=== PATIENT | female | born 1945 | race Two or more races ===

== ENCOUNTER 2017-12-22 19:03 | Inpatient (IN) | payer MEDICARE, OTHER ==
[~2017-12-22] VITALS: Ht 124.5 cm; Wt 46.7 kg
[2017-12-22] MEDS ORDERED: DILTIAZEM HCL 25 MG IV IV ONE (19:30)
[2017-12-22] MEDS ORDERED: DILTIAZEM HCL 25 MG IV ONE (19:33)
[2017-12-22 19:44] LABS: BASOPHILS % (AUTO) 0.2 % (0.0-2.0); EOSINOPHILS # (AUTO) 0.4 /CMM (0.0-0.7); EOSINOPHILS % (AUTO) 3.8 % (0.0-6.0); HEMATOCRIT 23 % (33-45); HEMOGLOBIN 7.8 g/dL (11.5-14.8); LYMPHOCYTES # (AUTO) 0.9 /CMM (0.8-4.8); LYMPHOCYTES % (AUTO) 8.2 % (20.0-44.0); MEAN CORPUSCULAR HEMOGLOBIN 30 PG (26.0-33.0); MEAN CORPUSCULAR HGB CONC 33 g/dl (31.0-36.0); MEAN CORPUSCULAR VOLUME 89 fL (82-100); MONOCYTES # (AUTO) 1.5 /CMM (0.1-1.30); MONOCYTES % (AUTO) 14.2 % (2.0-12.0); NEUTROPHILS # (AUTO) 7.8 /CMM (1.8-8.9); NEUTROPHILS % (AUTO) 73.6 % (43.0-81.0); PLATELET COUNT (AUTO) 320 /CMM (150-450); RDW COEFFICIENT OF VARIATION 20.3 (11.5-15.0); RED BLOOD CELL COUNT(AUTO) 2.61 MIL/uL (4.0-5.2); WHITE BLOOD COUNT (AUTO) 10.6 K/uL (4.3-11.0)
[2017-12-22 19:46] LABS: CALCIUM, SERUM 8.3 mg/dL (8.5-10.1); CARBON DIOXIDE 28 mmol/L (21-32); CHLORIDE 97 mmol/L (98-107); CREATININE 0.6 mg/dL (0.6-1.3); GLUCOSE 114 mg/dL (74-106); SODIUM SERUM 131 mmol/L (136-145); UREA NITROGEN, BLOOD 7 mg/dL (7-18)
[2017-12-22 19:55] LABS: TROPONIN I 0.404 ng/mL (0.00-0.056)
[2017-12-22 19:59] LABS: B-TYPE NATRIURETIC PEPTIDE 2048 PG/ML (0-125)
[2017-12-22 20:19] LABS: INR 1.11 (0.85-1.15)
[2017-12-22] MEDS ORDERED: ASPIRIN 325 MG TABLET PO ONE (20:30)
[2017-12-22] MEDS ORDERED: ASPIRIN 325 MG TABLET ONE (20:47)
[2017-12-22] MEDS ORDERED: FUROSEMIDE 40 MG/4 ML VIAL IV ONE (21:30)
[2017-12-22] MEDS ORDERED: ACETAMINOPHEN 325 MG TABLET PO PRN (22:00)
[2017-12-22] MEDS ORDERED: MAGNESIUM HYDROXIDE 30 ML UDC PO PRN (22:00)
[2017-12-22] MEDS ORDERED: ONDANSETRON HCL/PF 4 MG/2 ML VIAL IVP PRN (22:00)
[2017-12-22] MEDS ORDERED: MAG HYDROX/AL HYDROX/SIMETH 30 ML UDC PO PRN (22:00)
[2017-12-22 22:45] VITALS: BP 108/45
[2017-12-23] VITALS (14 sets, daily range): BP systolic 90–118; BP diastolic 40–71
[2017-12-23] MEDS ORDERED: FUROSEMIDE 40 MG/4 ML VIAL ONE (05:19)
[2017-12-23 07:08] LABS: BASOPHILS % (AUTO) 0.2 % (0.0-2.0); EOSINOPHILS # (AUTO) 0.5 /CMM (0.0-0.7); EOSINOPHILS % (AUTO) 5.1 % (0.0-6.0); HEMATOCRIT 27 % (33-45); LYMPHOCYTES % (AUTO) 10.9 % (20.0-44.0); MEAN CORPUSCULAR HEMOGLOBIN 29 PG (26.0-33.0); MEAN CORPUSCULAR HGB CONC 33 g/dl (31.0-36.0); MEAN CORPUSCULAR VOLUME 87 fL (82-100); MONOCYTES # (AUTO) 1.4 /CMM (0.1-1.30); MONOCYTES % (AUTO) 14.9 % (2.0-12.0); NEUTROPHILS # (AUTO) 6.3 /CMM (1.8-8.9); NEUTROPHILS % (AUTO) 68.9 % (43.0-81.0); PLATELET COUNT (AUTO) 292 /CMM (150-450); RDW COEFFICIENT OF VARIATION 19.3 (11.5-15.0); RED BLOOD CELL COUNT(AUTO) 3.12 MIL/uL (4.0-5.2); WHITE BLOOD COUNT (AUTO) 9.1 K/uL (4.3-11.0)
[2017-12-23 07:13] LABS: CARBON DIOXIDE 25 mmol/L (21-32); CHLORIDE 100 mmol/L (98-107); CREATININE 0.5 mg/dL (0.6-1.3); GLUCOSE 107 mg/dL (74-106); MAGNESIUM 2.2 mg/dL (1.8-2.4); PHOSPHORUS 2.5 mg/dL (2.5-4.9); POTASSIUM 3.4 mmol/L (3.5-5.1); SODIUM SERUM 136 mmol/L (136-145); UREA NITROGEN, BLOOD 7 mg/dL (7-18)
[2017-12-23 07:36] LABS: IRON, SERUM 42 ug/dl (50-175); TOTAL IRON BINDING CAPACITY 204 ug/dl (250-450)
[2017-12-23 07:55] LABS: CHOLESTEROL 81 mg/dL (<200); FERRITIN 1759 ng/mL (8-388); HDL CHOLESTEROL 44 mg/dL (40-60); LDL 37 mg/dL (0-99); TRIGLYCERIDES 46 mg/dL (30-150)
[2017-12-23] MEDS ORDERED: ATOR40TA PO (08:38)
[2017-12-23] MEDS ORDERED: FURO-144 PO (08:38)
[2017-12-23] MEDS ORDERED: CYAN100096 PO (08:38)
[2017-12-23] MEDS ORDERED: LEVE250T2 PO (08:38)
[2017-12-23] MEDS ORDERED: ASPI-1169 PO (08:38)
[2017-12-23] MEDS ORDERED: MULT-24 PO (08:38)
[2017-12-23] MEDS ORDERED: DOCU-141 PO (08:38)
[2017-12-23] MEDS: FUROSEMIDE 40 MG/4 ML VIAL IV SCH ×2 (09:31→18:09)
[2017-12-23] MEDS: ASPIRIN 325 MG TABLET PO SCH (09:32)
[2017-12-23] MEDS: CARVEDILOL 6.25 MG TABLET PO SCH ×2 (09:32→20:34)
[2017-12-23] MEDS: PANTOPRAZOLE 40 MG TABLET.DR PO SCH (09:32)
[2017-12-23] MEDS ORDERED: POTASSIUM CHLORIDE 20 MEQ TAB.PRT.SR PO ONE (12:00)
[2017-12-24] VITALS: BP 96/41
[2017-12-24] MEDS ORDERED: RIVAROXABAN 10 MG TABLET PO ONE (02:00)
[2017-12-24 04:00] VITALS: BP 108/57
[2017-12-24 06:55] LABS: CALCIUM, SERUM 7.8 mg/dL (8.5-10.1); CARBON DIOXIDE 30 mmol/L (21-32); CHLORIDE 104 mmol/L (98-107); CREATININE 0.5 mg/dL (0.6-1.3); GLUCOSE 91 mg/dL (74-106); PHOSPHORUS 2.2 mg/dL (2.5-4.9); POTASSIUM 2.9 mmol/L (3.5-5.1); SODIUM SERUM 141 mmol/L (136-145); TROPONIN I 0.361 ng/mL (0.00-0.056); UREA NITROGEN, BLOOD 9 mg/dL (7-18)
[2017-12-24 06:59] LABS: BASOPHILS % (AUTO) 0.1 % (0.0-2.0); EOSINOPHILS # (AUTO) 0.4 /CMM (0.0-0.7); HEMATOCRIT 27 % (33-45); HEMOGLOBIN 9.1 g/dL (11.5-14.8); LYMPHOCYTES # (AUTO) 0.9 /CMM (0.8-4.8); LYMPHOCYTES % (AUTO) 9.8 % (20.0-44.0); MEAN CORPUSCULAR HEMOGLOBIN 29 PG (26.0-33.0); MEAN CORPUSCULAR HGB CONC 33 g/dl (31.0-36.0); MEAN CORPUSCULAR VOLUME 87 fL (82-100); MONOCYTES # (AUTO) 1.3 /CMM (0.1-1.30); MONOCYTES % (AUTO) 14.8 % (2.0-12.0); NEUTROPHILS # (AUTO) 6.1 /CMM (1.8-8.9); NEUTROPHILS % (AUTO) 70.3 % (43.0-81.0); PLATELET COUNT (AUTO) 317 /CMM (150-450); RDW COEFFICIENT OF VARIATION 18.1 (11.5-15.0); RED BLOOD CELL COUNT(AUTO) 3.16 MIL/uL (4.0-5.2); WHITE BLOOD COUNT (AUTO) 8.7 K/uL (4.3-11.0)
[2017-12-24 08:00] VITALS: BP 106/51
[2017-12-24] MEDS: CARVEDILOL 6.25 MG TABLET PO SCH ×2 (08:02→20:34)
[2017-12-24] MEDS: ASPIRIN 325 MG TABLET PO SCH (08:02)
[2017-12-24] MEDS: PANTOPRAZOLE 40 MG TABLET.DR PO SCH (08:02)
[2017-12-24] MEDS: FUROSEMIDE 40 MG/4 ML VIAL IV SCH (08:02)
[2017-12-24] MEDS: POTASSIUM CHLORIDE 20 MEQ TAB.PRT.SR PO SCH ×3 (09:48→11:31)
[2017-12-24 12:00] VITALS: BP 102/59
[2017-12-24 16:00] VITALS: BP 99/48
[2017-12-24] MEDS ORDERED: POTASSIUM CHLORIDE 20 MEQ POWDER PACKET PO ONE (16:00)
[2017-12-24] MEDS ORDERED: K PHOS NEUTRAL 250 MG TABLET PO ONE (16:30)
[2017-12-24 20:00] VITALS: BP 104/83
[2017-12-25] VITALS: BP 110/65
[2017-12-25 04:00] VITALS: BP 90/54
[2017-12-25 06:26] LABS: BASOPHILS % (AUTO) 0.2 % (0.0-2.0); EOSINOPHILS # (AUTO) 0.6 /CMM (0.0-0.7); EOSINOPHILS % (AUTO) 6.2 % (0.0-6.0); HEMATOCRIT 27 % (33-45); HEMOGLOBIN 9.1 g/dL (11.5-14.8); LYMPHOCYTES # (AUTO) 0.7 /CMM (0.8-4.8); LYMPHOCYTES % (AUTO) 8.2 % (20.0-44.0); MEAN CORPUSCULAR HEMOGLOBIN 29 PG (26.0-33.0); MEAN CORPUSCULAR HGB CONC 33 g/dl (31.0-36.0); MEAN CORPUSCULAR VOLUME 86 fL (82-100); MONOCYTES # (AUTO) 1.2 /CMM (0.1-1.30); MONOCYTES % (AUTO) 12.8 % (2.0-12.0); NEUTROPHILS # (AUTO) 6.6 /CMM (1.8-8.9); NEUTROPHILS % (AUTO) 72.6 % (43.0-81.0); PLATELET COUNT (AUTO) 351 /CMM (150-450); RDW COEFFICIENT OF VARIATION 19.5 (11.5-15.0); RED BLOOD CELL COUNT(AUTO) 3.18 MIL/uL (4.0-5.2); WHITE BLOOD COUNT (AUTO) 9.1 K/uL (4.3-11.0)
[2017-12-25 06:39] LABS: CARBON DIOXIDE 31 mmol/L (21-32); CHLORIDE 102 mmol/L (98-107); CREATININE 0.5 mg/dL (0.6-1.3); GLUCOSE 96 mg/dL (74-106); MAGNESIUM 2.1 mg/dL (1.8-2.4); PHOSPHORUS 2.2 mg/dL (2.5-4.9); SODIUM SERUM 138 mmol/L (136-145); UREA NITROGEN, BLOOD 11 mg/dL (7-18)
[2017-12-25 08:00] VITALS: BP_SYST 117; BP_DIAS 65; BP_DIAS 75
[2017-12-25] MEDS: PANTOPRAZOLE 40 MG TABLET.DR PO SCH (08:27)
[2017-12-25] MEDS: ASPIRIN 325 MG TABLET PO SCH (08:27)
[2017-12-25] MEDS: CARVEDILOL 6.25 MG TABLET PO SCH (08:41)
[2017-12-25] MEDS: FUROSEMIDE 40 MG TABLET PO SCH (09:52)
[2017-12-25 11:23] LABS: OCCULT BLOOD STOOL NEGATIVE (NEGATIVE)
[2017-12-25 12:00] VITALS: BP 92/54
[2017-12-25] MEDS ORDERED: K PHOS NEUTRAL 250 MG TABLET PO ONE (12:00)
[2017-12-25 16:00] VITALS: BP 107/64
[2017-12-25] MEDS: BISOPROLOL FUMARATE 5 MG TABLET PO SCH (19:00)
[2017-12-25 20:00] VITALS: BP 100/43
[2017-12-26] VITALS: BP 113/64
[2017-12-26 04:00] VITALS: BP 93/64
[2017-12-26 06:24] LABS: BASOPHILS % (AUTO) 0.5 % (0.0-2.0); EOSINOPHILS # (AUTO) 0.6 /CMM (0.0-0.7); EOSINOPHILS % (AUTO) 8.1 % (0.0-6.0); HEMATOCRIT 28 % (33-45); HEMOGLOBIN 9.2 g/dL (11.5-14.8); LYMPHOCYTES # (AUTO) 0.9 /CMM (0.8-4.8); MEAN CORPUSCULAR HEMOGLOBIN 28 PG (26.0-33.0); MEAN CORPUSCULAR HGB CONC 33 g/dl (31.0-36.0); MEAN CORPUSCULAR VOLUME 87 fL (82-100); MONOCYTES # (AUTO) 1.1 /CMM (0.1-1.30); MONOCYTES % (AUTO) 14.7 % (2.0-12.0); NEUTROPHILS # (AUTO) 5.1 /CMM (1.8-8.9); NEUTROPHILS % (AUTO) 65.7 % (43.0-81.0); PLATELET COUNT (AUTO) 358 /CMM (150-450); RDW COEFFICIENT OF VARIATION 21.6 (11.5-15.0); RED BLOOD CELL COUNT(AUTO) 3.22 MIL/uL (4.0-5.2); WHITE BLOOD COUNT (AUTO) 7.7 K/uL (4.3-11.0)
[2017-12-26 06:36] LABS: CARBON DIOXIDE 28 mmol/L (21-32); CHLORIDE 102 mmol/L (98-107); CREATININE 0.5 mg/dL (0.6-1.3); GLUCOSE 96 mg/dL (74-106); PHOSPHORUS 2.7 mg/dL (2.5-4.9); POTASSIUM 3.4 mmol/L (3.5-5.1); SODIUM SERUM 138 mmol/L (136-145); UREA NITROGEN, BLOOD 7 mg/dL (7-18)
[2017-12-26] MEDS: PANTOPRAZOLE 40 MG TABLET.DR PO SCH (06:52)
[2017-12-26 08:00] VITALS: BP 100/66
[2017-12-26] MEDS ORDERED: POTASSIUM CHLORIDE 20 MEQ POWDER PACKET PO ONE (08:00)
[2017-12-26] MEDS: ASPIRIN 325 MG TABLET PO SCH (08:02)
[2017-12-26] MEDS: BISOPROLOL FUMARATE 5 MG TABLET PO SCH ×2 (08:03→18:07)
[2017-12-26] MEDS: FUROSEMIDE 40 MG TABLET PO SCH (08:04)
[2017-12-26 12:00] VITALS: BP 93/61
[2017-12-26] MEDS ORDERED: DIGOXIN INJ 0.5 MG/2 ML AMPUL IV ONE ×2 (15:30→21:30)
[2017-12-26 16:00] VITALS: BP 105/40
[2017-12-26 20:00] VITALS: BP 101/56
[2017-12-26] MEDS ORDERED: DIGOXIN INJ 0.5 MG/2 ML AMPUL IV SCH (21:30)
[2017-12-27] VITALS: BP 121/56
[2017-12-27] MEDS ORDERED: DIGOXIN INJ 0.5 MG/2 ML AMPUL IV ONE (03:30)
[2017-12-27 04:00] VITALS: BP 111/71
[2017-12-27 06:40] LABS: ALANINE AMINOTRANSFERASE 53 U/L (12-78); ALBUMIN 2.5 g/dL (3.4-5.0); ALKALINE PHOSPHATASE 693 U/L (46-116); ASPARTATE AMINOTRANSFERASE 47 U/L (15-37); BILIRUBIN,TOTAL 0.9 mg/dL (0.2-1.0); CALCIUM, SERUM 8.1 mg/dL (8.5-10.1); CARBON DIOXIDE 27 mmol/L (21-32); CHLORIDE 105 mmol/L (98-107); CREATININE 0.5 mg/dL (0.6-1.3); GLUCOSE 92 mg/dL (74-106); MAGNESIUM 2.1 mg/dL (1.8-2.4); POTASSIUM 3.6 mmol/L (3.5-5.1); SODIUM SERUM 138 mmol/L (136-145); TOTAL PROTEIN, SERUM 6.2 g/dL (6.4-8.2); UREA NITROGEN, BLOOD 8 mg/dL (7-18)
[2017-12-27 08:00] VITALS: BP 98/69
[2017-12-27] MEDS: BISOPROLOL FUMARATE 5 MG TABLET PO SCH (09:00)
[2017-12-27] MEDS: PANTOPRAZOLE 40 MG TABLET.DR PO SCH (09:01)
[2017-12-27] MEDS: FUROSEMIDE 40 MG TABLET PO SCH (09:01)
[2017-12-27] MEDS: ASPIRIN 325 MG TABLET PO SCH (09:01)
[2017-12-27 12:00] VITALS: BP 99/69
[2017-12-27 16:00] VITALS: BP 116/67
[2017-12-27] MEDS ORDERED: BISOPROLOL FUMARATE 5 MG TABLET PO SCH (17:00)
[2017-12-28] MEDS ORDERED: DIGOXIN 0.125 MG TABLET PO SCH (13:00)
== END 2017-12-27 16:34 | disposition home or self-care (01) | DRG 280 ==
LOC: ER 19:04 → TELE-TD 21:25 → TELE1 12-24 10:24
PROVIDERS: ADMIT Nurse Practitioner Acute Care; ATTEND Nurse Practitioner Acute Care
PROC: 30233N1 Transfusion of Nonautologous Red Blood Cells into Peripheral Vein, Percutaneous Approach (ICD-10-PCS; principal; 2017-12-22)
PROC: 0W993ZZ Drainage of Right Pleural Cavity, Percutaneous Approach (ICD-10-PCS; 2017-12-23)
DX: I48.91 Unspecified atrial fibrillation (principal); I50.33 Acute on chronic diastolic (congestive) heart failure; I21.A1 Myocardial infarction type 2; J90 Pleural effusion, not elsewhere classified; E87.1 Hypo-osmolality and hyponatremia; I27.20 Pulmonary hypertension, unspecified; E83.39 Other disorders of phosphorus metabolism; I31.3 Pericardial effusion (noninflammatory); I05.0 Rheumatic mitral stenosis; I11.0 Hypertensive heart disease with heart failure; E78.5 Hyperlipidemia, unspecified; Z95.2 Presence of prosthetic heart valve; Z79.82 Long term (current) use of aspirin; Z79.899 Other long term (current) drug therapy; D64.9 Anemia, unspecified; I70.0 Atherosclerosis of aorta; I09.9 Rheumatic heart disease, unspecified; Z86.73 Personal history of transient ischemic attack (TIA), and cerebral infarction without residual deficits; I25.10 Atherosclerotic heart disease of native coronary artery without angina pectoris; Z79.01 Long term (current) use of anticoagulants; E87.6 Hypokalemia
CPT/HCPCS: 36415; 71045-TC; 71046; 76942-TC; 80048-TC; 80053-TC; 80061-TC; 82272-TC; 82728-TC; 83540-TC; 83735-TC; 83880; 84100-TC; 84484-TC; 85025-TC; 85730-TC; 86850-TC; 86921-TC; 87070-TC; 87075-TC; 87081-TC; 87102-TC; 89051-TC; 93307-TC; A4606; J1160; J1940; J3490; J7050; P9016-BL; Z7610